=== PATIENT | female | born 1960 | race American Indian/Alaskan Native ===

== ENCOUNTER 2017-03-27 14:35 | Emergency (ER) | payer MEDICARE ==
--- NOTE | 2017-03-27 15:47 | Emergency Department Report ---
Entered by LUI LA, acting as scribe for MISSAEL UMANA NP. Chief Complaint: Back Pain/Injury Stated Complaint: BACK PAIN Time Seen by Provider: 03/27/17 15:31 - HPI History of Present Illness: 57 y/o non-toxic, non ill-appearing female in no acute distress presents to ED c /o chronic back pain, worsening since 3 months ago, described as aching. She denies recent injury or trauma. Pt also notes she has not f/u with physician in 3 months, noting Hx of spinal stenosis and DJD beginning 2 years ago. She states she normally administers Hydrocodone for pain. Reports compliance with anti-hypertensives and notes her BP normally runs high at home. - ROS Review of Systems: + low back pain, denies additional symptoms - Exam Vital Signs: Vital Signs 03/27/17 15:23 Temperature 98 F Pulse Rate 72 Respiratory 18 Rate Blood Pressure 200/99 O2 Sat by Pulse 100 Oximetry Physical Exam: Pt in no acute distress, non-toxic, non ill appearing Back: Pain to lumbar, saccral areas MSE screening note: Focused history and physical exam performed. Due to findings the following was ordered: CBC, CMP, troponin, EKG ED Disposition for MSE Condition: Stable This documentation as recorded by the scribe,LUI LA,accurately reflects the service I personally performed and the decisions made by LYNDSAY daigle MARTIN, [place].
[2017-03-27 16:04] LABS: Basophils % (Auto) 1.4 % (0.0-1.8); Eosinophils % (Auto) 3.7 % (0.0-4.3); Hemoglobin 12.9 gm/dl (10.1-14.3); Mean Corpuscular HGB Conc 33 % (30-34); Mean Corpuscular Hemoglobin 29 pg (28-32); Mean Corpuscular Volume 87 fl (79-97); Platelet Count 324 K/mm3 (140-440); Red Blood Count 4.48 M/mm3 (3.65-5.03); White Blood Count 6.4 K/mm3 (4.5-11.0)
[2017-03-27 16:32] LABS: Alanine Aminotransferase 14 units/L (7-56); Albumin 4.4 g/dL (3.9-5); Albumin/Globulin Ratio 1.4 %; Alkaline Phosphatase 66 units/L (35-129); Anion Gap 21 mmol/L; BUN/Creatinine Ratio 21.42; Blood Urea Nitrogen 15 mg/dL (7-17); Carbon Dioxide 24 mmol/L (22-30); Glucose 117 mg/dL (65-100); Potassium 4.5 mmol/L (3.6-5.0); Sodium 141 mmol/L (137-145); Total Protein 7.6 g/dL (6.3-8.2)
[2017-03-27] MEDS ORDERED: CATAPRES PO ONE (16:33)
[2017-03-27] MEDS ORDERED: MORPHINE IV ONE (20:01)
--- NOTE | 2017-03-27 20:01 | Emergency Department Report ---
HPI - General Chief Complaint: Back Pain/Injury Time Seen by Provider: 03/27/17 19:32 - HPI HPI: This is a 57-year-old Afro-[place]ic female presents to the emergency department from home with complaint of pain to the lower back across the entire back with radiation down through the bilateral hips and legs. The patient has a history of spinal stenosis diagnosed about 2 years ago and says that the pains have been progressively worsening since that time. She denies any numbness or paresthesias, problems with bowel or bladder, or any neurological deficits. She has taken some hydrocodone in the past with some mild relief but nothing recently. Patient resents with very elevated blood pressure and does have a history of hypertension for which she takes clonidine and says she has been compliant with the medication. Her primary care doctor is Mati Hill but she does not have any orthopedist or neurosurgeon. No recent travel or sick contacts at home. ED Past Medical Hx - Past Medical History Previous Medical History?: Yes Hx Hypertension: Yes Additional medical history: DJD, Spinal stenosis, Uterine fibroids - Surgical History Past Surgical History?: No - Social History Smoking Status: Never Smoker Substance Use Type: Non Opiate Pain, Prescribed - Medications Home Medications: Home Medications Medication Instructions Recorded Confirmed Last Taken Type cloNIDine [Catapres] 1 tab PO BID 03/27/17 03/27/17 03/26/17 History oxyCODONE /ACETAMINOPHEN [Percocet 1 tab PO Q6HR PRN #10 tablet 03/27/17 Unknown Rx 5/325] traMADol [Ultram 50 MG tab] 1 tab PO PRN 03/27/17 03/27/17 03/26/17 History ED Review of Systems ROS: Stated complaint: BACK PAIN Other details as noted in HPI Comment: All other systems reviewed and negative Constitutional: denies: chills, fever Eyes: denies: eye pain, eye discharge, vision change ENT: denies: ear pain, throat pain Respiratory: denies: cough, shortness of breath, wheezing Cardiovascular: denies: chest pain, palpitations Gastrointestinal: denies: abdominal pain, nausea, diarrhea Genitourinary: denies: urgency, dysuria, discharge Musculoskeletal: back pain, arthralgia, myalgia Skin: denies: rash, lesions Neurological: denies: headache, weakness, paresthesias Physical Exam - Physical Exam Vital Signs: Vital Signs 03/27/17 03/27/17 03/27/17 15:23 16:43 18:36 Temperature 98 F 97.5 F L Pulse Rate 72 73 60 Respiratory 18 16 Rate Blood Pressure 200/99 198/98 140/80 O2 Sat by Pulse 100 100 Oximetry Physical Exam: GENERAL: The patient is well-developed well-nourished. HEENT: Normocephalic. Atraumatic. Extraocular motions are intact. Patient has moist mucous membranes. Pupils equal reactive to light bilaterally. NECK: Supple. Trachea is midline. CHEST/LUNGS: Clear to auscultation. There is no respiratory distress noted. HEART/CARDIOVASCULAR: Regular. There is no tachycardia. There is no gallop rub or murmur. ABDOMEN: Abdomen is soft, nontender. Patient has normal bowel sounds. There is no abdominal distention. SKIN: Skin is warm and dry. NEURO: The patient is awake, alert, and oriented. The patient is cooperative. The patient has no focal neurologic deficits. The patient has normal speech. Cranial nerves II through XII grossly intact. DTRs patella +2 over 4 bilaterally. MUSCULOSKELETAL: There is no tenderness or deformity. There is no limitation range of motion. There is no evidence of acute injury. Muscle strength 5 out of 5 for upper and lower extremities including EHL bilaterally. BACK: No midline thoracic tenderness to palpation or deformity. No midline lumbar deformity or step-off. Unable to reproduce patient's low lumbar midline and paraspinal discomfort to palpation. ED Course Vital Signs 03/27/17 03/27/17 03/27/17 15:23 16:43 18:36 Temperature 98 F 97.5 F L Pulse Rate 72 73 60 Respiratory 18 16 Rate Blood Pressure 200/99 198/98 140/80 O2 Sat by Pulse 100 100 Oximetry ED Medical Decision Making - Lab Data Result diagrams: 03/27/17 15:43 03/27/17 15:43 - Medical Decision Making 57-year-old female with a history of lumbar spinal stenosis presents with bilateral back pain with radiation down the hips and legs. She denies any numbness or paresthesias, problems with bowel or bladder or any neurological deficits. This pain is consistent with previous discomfort and occurs intermittently since the diagnosis 2 years ago. The patient had a complete blood count and complete metabolic panel that showed results that are unremarkable and certainly did not show any etiology of the patient's symptoms. She was given a single dose of IM pain medication and upon reevaluation she is feeling improved. She was able to get up and display the ability to ambulate and appeared stable while doing so. With her history of spinal stenosis, she will be given a referral for neurosurgery to establish care and she'll be given some pain medication. She will return to the ER with any worsening of her symptoms or any acute distress. She does not appear to have any of the emergent back condition such as cauda equina, epidural abscess or cord compression syndrome. - Differential Diagnosis spinal stenosis, sciatica, muscle strain Critical Care Time: No Critical care attestation.: If time is entered above; I have spent that time in minutes in the direct care of this critically ill patient, excluding procedure time. ED Disposition Clinical Impression: History of spinal stenosis Back pain Qualifiers: Back pain location: low back pain Chronicity: unspecified Back pain laterality : bilateral Sciatica presence: with sciatica Sciatica laterality: sciatica laterality unspecified Qualified Code(s): M54.40 - Lumbago with sciatica, unspecified side Hip pain Qualifiers: Laterality: bilateral Qualified Code(s): M25.551 - Pain in right hip; M25.552 - Pain in left hip Disposition: DISCHARGED TO HOME OR SELFCARE Is pt being admited?: No Condition: Stable Instructions: Back Pain (ED), Sciatica (ED) Additional Instructions: Neurosurgery: Samira Rizvi [place] [address] Please follow-up with your primary care doctor in the near future. Return to the emergency department with any worsening of her symptoms, or any acute distress. You've been prescribed a medication that is sedating. Therefore this medication cannot be mixed with alcohol, or taken prior to driving, working, or being responsible for children. Prescriptions: oxyCODONE /ACETAMINOPHEN [Percocet 5/325] 1 tab PO Q6HR PRN #10 tablet PRN Reason: Pain Referrals: CINTHYA HILL MD [Primary Care Provider] - 3-5 Days Time of Disposition: 22:09
[2017-03-27 22:49] VITALS: BP 165/75
== END 2017-03-27 22:50 | disposition home or self-care (01) ==
LOC: ED 14:35
DX: M54.40 Lumbago with sciatica, unspecified side (principal); M25.551 Pain in right hip; I10 Essential (primary) hypertension
CPT/HCPCS: 36415; 80053; 84484; 85025; 93005; 93010; 96374; 99283; J2270